=== PATIENT | female | born 1975 | race Caucasian/White ===

== ENCOUNTER 2016-09-12 04:34 | Emergency (ER) | END 2016-09-12 08:43 | disposition home or self-care (01) | DX: J06.9 Acute upper respiratory infection, unspecified (principal); F17.210 Nicotine dependence, cigarettes, uncomplicated | CPT/HCPCS: 36415; 80053; 81001; 81003; 83690; 85025; Z7502; Z7610 ==

== ENCOUNTER 2016-09-30 12:43 | Emergency (ER) | payer MEDICAID ==
[~2016-09-30] VITALS: Ht 154.9 cm; Wt 53.0 kg
[~2016-09-30 12:43] MED LIST: ACET1TAB40 PO; AZIT250T94 PO; BENZ100C70 PO; CEPH-443 PO; CLOT24CR4 TOP; CODE118S PO; ELIM TOP; ERYTOPOI RIGHT EYE; FLUT9.9S NASAL; HYDR-3011 PO; IBUP-1542 PO; KENC1 TOP; LORA-441 PO; NITR-58 PO; ONDA4TAB8 PO; OSLT75C PO; PROM5SYR2 PO; PROM6.25 PO; PROM6.2514 PO; PSEU30TA38 PO
[2016-09-30 12:46] VITALS: Ht 154.9 cm; Wt 53.0 kg
--- NOTE | 2016-09-30 14:22 | ERD ---
ER Documentation Chief Complaint Date/Time DATE: 09/30/16 TIME: 14:15 Chief Complaint RT EYE PAIN AND REDNESS HPI 40 y/o female presents to ED for right eye pain and redness for 8 days. Stated that it started while she was working with her recycling bottles and a glass broke and she felt like she had a piece of glass that got into her eyes. Pain was described as achy and non-radiating with the rate of 7/10 at this time. Reports blurry vision on right eye but able to read letters on a paper. She does not report pain on eye movement. Denies headache, loss of consciousness, dizziness, blurry vision, changes in vision, facial pain, ear pain, throat pain, difficulty swallowing, neck pain, neck stiffness, shoulder pain, chest pain, cough, hemoptysis, abdominal pain, back pain, loss of appetite, nausea, vomiting, hematochezia, diarrhea, constipation, urinary symptoms, , the possibility of being , bladder and bowel incontinences, extremity weakness, extremity tenderness, numbness or tingling sensation, difficulty walking, recent travel, recent exposure to illness, recent antibiotic use in the last 3 months, fever, chills. Allergy: NKA PMH: Denies Family medical history: Denies AO LMP: "15 days ago." Medications: Denies Surgery: Pancreatic surgery Social: Works Denies smoking, use of alcohol, use of illegal drugs. ROS All systems reviewed and are negative except as per history of present illness. Medications Home Meds Active Scripts Fluticasone Propionate (Flonase Allergy Relief) 9.9 Ml Stevenson.susp, 1 SPRAY NASAL DAILY, #1 BOTTLE TO EACH NOSTRIL Prov:BINH CHEEMA PA-C 09/12/16 Pseudoephedrine Hcl* (Pseudoephedrine Hcl*) 30 Mg Tablet, 30 MG PO Q6 Y for CONGESTION, #30 TAB Prov:BINH CHEEMA PA-C 09/12/16 Ondansetron Hcl* (Zofran*) 4 Mg Tablet, 4 MG PO Q6H for NAUSEA AND/OR VOMITING, #30 TAB Prov:BINH CHEEMA PA-C 09/12/16 Promethazine HCl/Codeine (Prometh-Codein 6.25-10 mg/5 ml) 5 Ml Syrup, 5 ML PO QID for 5 Days Prov:SAM RUBIO MD 07/08/16 Ibuprofen* (Motrin*) 600 Mg Tab, 600 MG PO Q6, #20 TAB Prov:SAM RUBIO MD 07/08/16 Azithromycin* (Zithromax*) 250 Mg Tablet, 250 MG PO .ZPACK DIRECTED, #6 TAB TAKE 500 MG (2 TABS) THE FIRST DAY THEN 250 MG (1 TAB) DAYS 2-5 Prov:SAM RUBIO MD 07/08/16 Oseltamivir Phosphate* (Tamiflu*) 75 Mg Capsule, 75 MG PO BID for 5 Days, CAP Prov:ANGIE PERKINS NP 07/08/16 Ibuprofen* (Motrin*) 600 Mg Tab, 600 MG PO Q6, #30 TAB Prov:ASPEN LARKIN PA-C 07/05/16 Promethazine Hcl* (Promethazine Hcl* Syrup) 6.25 Mg/5 Ml Syrup, 6.25 MG PO Q6H Y for COUGH, #4 ML Prov:ASPEN LARKIN PA-C 07/05/16 Erythromycin* (Erythromycin* Ophthalmic) 1 Applic Oint, 1 APPLIC RIGHT EYE QID for 7 Days Prov:JUANIS KINCAID PA-C 05/01/16 Cephalexin* (Keflex*) 500 Mg Capsule, 500 MG PO QID for 7 Days, CAP Prov:JUANIS KINCAID PA-C 05/01/16 Hydroxyzine Hcl* (Hydroxyzine Hcl*) 25 Mg Tablet, 25 MG PO Q8H Y for ITCHING, # 30 TAB Prov:MARISOL CAMPO NP 08/24/15 Triamcinolone Acetonide (Triamcinolone Acetonide) 0.1% - 15 Gm Cream.gm., 1 APPLIC TOP BID for 7 Days, TUB Prov:MARISOL CAMPO NP 08/24/15 Permethrin* (Elimite*) 5% Cr, 1 APPLIC TOP ONCE, #1 TUB APPLY FROM NECK DOWN, LEAVE ON FOR 12 HRS THEN RINSE OFF, REPEAT IN 1 WEEK Prov:MARISOL CAMPO NP 08/24/15 Clotrimazole* (Lotrimin* AF) 1% - 24 Gm Cream.gm., 1 APPLIC TOP BID for 10 Days , TUB Prov:SAM RUBIO MD 07/19/15 Ibuprofen* (Motrin*) 600 Mg Tab, 600 MG PO Q6, #14 TAB Prov:SAM RUBIO MD 07/19/15 Lorazepam* (Ativan*) 0.5 Mg Tablet, 0.5 MG PO Q8, #14 TAB Prov:SAM RUBIO MD 07/19/15 Nitrofurantoin Monohyd Macrocr* (Macrobid*) 100 Mg Capsr, 100 MG PO BID for 7 Days, CAP Prov:FATOU FERNANDES PA-C 03/10/15 Promethazine w/Codeine* (Phenergan w/Codeine* Syrup) 5 Ml Syrup, 5 ML PO Q4H Y for COUGH, #4 OZ Prov:CHO,LAZARUS 03/05/15 Benzonatate* (Tessalon Perle*) 100 Mg Capsule, 200 MG PO TID Y for COUGH, #21 CAP Prov:CHO,LAZARUS 03/05/15 Acetaminophen-Codeine* (Acetaminophen-Cod #3*) 300-30 Mg Tab, 1 TAB PO Q4H Y for PAIN LEVEL 6-10, #15 TAB Prov:CHO,LAZARUS 03/05/15 Ibuprofen* (Motrin*) 600 Mg Tab, 600 MG PO Q6 for PAIN LEVEL 1-5, #15 TAB Prov:CHO,LAZARUS 03/05/15 Reported Medications Promethazine w/Codeine* (Phenergan w/Codeine* Syrup) 473 Ml Syrup, 473 ML PO Q6 Y 06/20/13 Allergies Allergies: Coded Allergies: No Known Drug Allergies (Verified Allergy, Mild, 07/05/16) PMhx/Soc History of Surgery: Yes (c/section) Anesthesia Reaction: No Hx Neurological Disorder: No Hx Respiratory Disorders: No Hx Cardiac Disorders: No Hx Psychiatric Problems: No Hx Miscellaneous Medical Probl: No Hx Alcohol Use: No Hx Substance Use: No Hx Tobacco Use: Yes (2-3 cig/ day) Physical Exam Vitals Vital Signs Date Time Temp Pulse Resp B/P Pulse Ox O2 Delivery O2 Flow Rate FiO2 09/30/16 12:46 97.8 88 18 132/66 100 Results 24 hrs Current Medications Medications (Trade) Dose Ordered Sig/Carole Route PRN Reason Start Time Stop Time Status Last Admin Dose Admin Fluorescein Sodium (Uvwpt-N-Ehkly) 1 strip ONCE ONCE RIGHT EYE 09/30/16 14:30 09/30/16 14:31 DC Proparacaine HCl (Alcaine 0.5%) 1 drop ONCE ONCE RIGHT EYE 09/30/16 14:30 09/30/16 14:30 DC Tetracaine HCl (Tetracaine 0.5% Oph) 1 drop ONCE ONCE RIGHT EYE 09/30/16 14:30 09/30/16 14:31 DC Procedures/MDM Initially seen here in ED RME but during history taking I realized that patient needs to be seen at ED2 providers due to the patient HPI of possible foreign body secondary to eye injury. Departure Condition: Stable CONNOR HURTADO Sep 30, 2016 14:22 Medications (Trade) Dose Ordered Sig/Carole Route PRN Reason Start Time Stop Time Status Last Admin Dose Admin Fluorescein Sodium (Mjifw-W-Bebnw) 1 strip ONCE ONCE RIGHT EYE 09/30/16 14:30 09/30/16 14:31 Proparacaine HCl (Alcaine 0.5%) 1 drop ONCE ONCE RIGHT EYE 09/30/16 14:30 09/30/16 14:31 Procedures/MDM Examination: Unremarkable examination except Patient and family member agreed with the plan of care and medical management. Medications: Patient and family member are made aware of the side effects of and adverse reactions of the medications prescribed. Instructed on when to seek emergent and medical attention in case allergic/anaphylactic reactions or severe side effects and or adverse reactions to medications. Patient and family member verbalized understanding. EENT instructions: Rest. Increase fluid intake. Avoid allergens. Take medications as prescribed. Educated on the disease process, treatment and emergency actions. Respiratory instructions: Increase fluid intake. Good hydration at home. Use humidifier. Rest. Avoid smoking/allergens. Educated on disease process, treatment and emergency actions. Patient instructed Instructed to follow-up with his PCP in 24 hours. PCP to refer patient EENT, Manager House, Acquisition Lead, Protection Engineer, Feed Preparation Operator, Orthopedic doctor in 24-48 hours. Instructed to Call 911 for chest pain, shortness of breath. Advised to come back here in ED as soon as possible for severity of symptoms which includes but not limited to: any new symptoms; shortness of breath/difficulty of breathing; cardiovascular changes; severe gastrointestinal symptoms; signs and symptoms of bleeding and or infection; signs of compartment syndrome/neurovascular changes; neurological changes/deficits. Patient and family member verbalized understanding. Upon discharge, patient is alert and oriented x 4, patient speaks full and clear sentences, patient denies pain, patient has no neurological deficits, patient has no neurovascular deficits. No difficulty of breathing. Lung sounds are clear to auscultation. Not in distress. Appears comfortable. Not in distress. Appears satisfied with care provided here in ED. CONNOR HURTADO Sep 30, 2016 14:22
[2016-09-30] MEDS ORDERED: PROPARACAINE 0.5% 15 ML OPH RIGHT EYE ONE (14:30)
[2016-09-30] MEDS ORDERED: TETRACAINE 0.5% 15 ML OPH RIGHT EYE ONE (14:30)
[2016-09-30] MEDS ORDERED: FLUORESCEIN STRIP RIGHT EYE ONE (14:30)
[2016-09-30] MEDS ORDERED: NAPR-688 PO (15:20)
[2016-09-30] MEDS ORDERED: HYDR-906 PO (15:20)
[2016-09-30] MEDS ORDERED: POLY10DR19 RIGHT EYE (15:20)
--- NOTE | 2016-09-30 15:30 | EN ---
Date/Time of Note Date/Time of Note DATE: 09/30/16 TIME: 15:27 ER Progress Note This 40-year-old female has right eye redness and pain. Was a days ago she was working with a glass bottle that broke. Workup done in ED 2 stated there may be a foreign body present. I performed an examination under high-powered lamp magnification and could find no foreign body. There was mild fluorescein uptake in part of the lateral pterygium as the patient does have pterygiums on both sides of her iris and cornea of the right eye. There is no foreign body could be removed. Eyelid eversion showed no foreign bodies either. At this point patient may have had a foreign body that dislodged and still has discomfort. She may simply have a corneal abrasion at this point. With an supervisor liquefaction to be the ideal physician to examine this patient further. I have explained this to the patient instructed in how to obtain ophthalmologic referral. She does have primary care physician but does not know the name. She is going to call and get ophthalmologic referral for the next few days. I am also to discharge with Polytrim eyedrops as well as naproxen and a few [place] for the pain. Discharge diagnosis: Corneal abrasion, pterygium: Both symptoms of right eye. MELLISA NAVARRO DO Sep 30, 2016 15:30
== END 2016-09-30 15:33 | disposition home or self-care (01) ==
LOC: FTE 12:43
DX: S05.01XA Injury of conjunctiva and corneal abrasion without foreign body, right eye, initial encounter (principal); H11.001 Unspecified pterygium of right eye; F17.210 Nicotine dependence, cigarettes, uncomplicated; X58.XXXA Exposure to other specified factors, initial encounter; Y92.9 Unspecified place or not applicable
CPT/HCPCS: Z7610 ×2; 99284

== ENCOUNTER 2016-12-27 20:49 | Emergency (ER) | payer MEDICAID ==
[~2016-12-27] VITALS: Wt 53.5 kg
[~2016-12-27 20:49] MED LIST changes: +HYDR-906 PO; +NAPR-688 PO; +POLY10DR19 RIGHT EYE
[2016-12-27] MEDS ORDERED: MINE3.5O30 BOTH EYES (21:39)
--- NOTE | 2016-12-27 21:47 | ERD ---
ER Documentation Chief Complaint Date/Time DATE: 12/27/16 TIME: 21:44 Chief Complaint eye pain x September This is a 41-year-old female presenting to the emergency department complaining of eye irritation and mild redness in both eyes for approximately 4 months. Patient has been evaluated by this facility for the same complaint in September. Patient describes the pain as mild irritation, constant, rating it 4 out of 10. She denies any vision changes, fevers, eye discharge, floaters or pain. Patient was evaluated in September with fluorescein staining and was given eyedrops, patient states that there was no relief. She has not followed up with her primary care physician. ROS All systems reviewed and are negative except as per history of present illness. Medications Home Meds Active Scripts Mineral Oil/Petrolatum,White (ARTIFICIAL TEARS EYE OINT) 3.5 Gm Oint...g., 1 APPLIC BOTH EYES NEEDED Y for DRY EYES, #1 EA Prov:SANTIAGO GARZON PA-C 12/27/16 Naproxen* (Naproxen*) 500 Mg Tablet, 500 MG PO BID Y for PAIN, #20 TAB Prov:MELLISA NAVARRO DO 09/30/16 Hydrocodone/Acetaminophen ([place] 5-325 Tablet) 1 Each Tablet, 1 EACH PO Q6, #14 TAB Prov:MELLISA NAVARRO DO 09/30/16 Polymyxin B Sulfate-TMP* (Polymyxin B-TMP Eye Drops*) 10 Ml Drops, 1 DROP RIGHT EYE QID for 7 Days, EA Prov:MELLISA NAVARRO DO 09/30/16 Fluticasone Propionate (Flonase Allergy Relief) 9.9 Ml [place].susp, 1 SPRAY NASAL DAILY, #1 BOTTLE TO EACH NOSTRIL Prov:BINH CHEEMA PA-C 09/12/16 Pseudoephedrine Hcl* (Pseudoephedrine Hcl*) 30 Mg Tablet, 30 MG PO Q6 Y for CONGESTION, #30 TAB Prov:BINH CHEEMA PA-C 09/12/16 Ondansetron Hcl* (Zofran*) 4 Mg Tablet, 4 MG PO Q6H for NAUSEA AND/OR VOMITING, #30 TAB Prov:BINH CHEEMA PA-C 09/12/16 Promethazine HCl/Codeine (Prometh-Codein 6.25-10 mg/5 ml) 5 Ml Syrup, 5 ML PO QID for 5 Days Prov:SAM RUBIO MD 07/08/16 Ibuprofen* (Motrin*) 600 Mg Tab, 600 MG PO Q6, #20 TAB Prov:SAM RUBIO MD 07/08/16 Azithromycin* (Zithromax*) 250 Mg Tablet, 250 MG PO .LupePACK DIRECTED, #6 TAB TAKE 500 MG (2 TABS) THE FIRST DAY THEN 250 MG (1 TAB) DAYS 2-5 Prov:SAM RUBIO MD 07/08/16 Oseltamivir Phosphate* (Tamiflu*) 75 Mg Capsule, 75 MG PO BID for 5 Days, CAP Prov:ANGIE PERKINS NP 07/08/16 Ibuprofen* (Motrin*) 600 Mg Tab, 600 MG PO Q6, #30 TAB Prov:ASPEN LARKIN PA-C 07/05/16 Promethazine Hcl* (Promethazine Hcl* Syrup) 6.25 Mg/5 Ml Syrup, 6.25 MG PO Q6H Y for COUGH, #4 ML Prov:ASPEN LARKIN PA-C 07/05/16 Erythromycin* (Erythromycin* Ophthalmic) 1 Applic Oint, 1 APPLIC RIGHT EYE QID for 7 Days Prov:JUANIS KINCAID PA-C 05/01/16 Cephalexin* (Keflex*) 500 Mg Capsule, 500 MG PO QID for 7 Days, CAP Prov:JUANIS KINCAID PA-C 05/01/16 Hydroxyzine Hcl* (Hydroxyzine Hcl*) 25 Mg Tablet, 25 MG PO Q8H Y for ITCHING, # 30 TAB Prov:MARISOL CAMPO NP 08/24/15 Triamcinolone Acetonide (Triamcinolone Acetonide) 0.1% - 15 Gm Cream.gm., 1 APPLIC TOP BID for 7 Days, TUB Prov:MARISOL CAMPO NP 08/24/15 Permethrin* (Elimite*) 5% Cr, 1 APPLIC TOP ONCE, #1 TUB APPLY FROM NECK DOWN, LEAVE ON FOR 12 HRS THEN RINSE OFF, REPEAT IN 1 WEEK Prov:MARISOL CAMPO NP 08/24/15 Clotrimazole* (Lotrimin* AF) 1% - 24 Gm Cream.gm., 1 APPLIC TOP BID for 10 Days , TUB Prov:SAM RUBIO MD 07/19/15 Ibuprofen* (Motrin*) 600 Mg Tab, 600 MG PO Q6, #14 TAB Prov:SAM RUBIO MD 07/19/15 Lorazepam* (Ativan*) 0.5 Mg Tablet, 0.5 MG PO Q8, #14 TAB Prov:SAM RUBIO MD 07/19/15 Nitrofurantoin Monohyd Macrocr* (Macrobid*) 100 Mg Capsr, 100 MG PO BID for 7 Days, CAP Prov:FATOU FERNANDES PA-C 03/10/15 Promethazine w/Codeine* (Phenergan w/Codeine* Syrup) 5 Ml Syrup, 5 ML PO Q4H Y for COUGH, #4 OZ Prov:CHO,LAZARUS 03/05/15 Benzonatate* (Tessalon Perle*) 100 Mg Capsule, 200 MG PO TID Y for COUGH, #21 CAP Prov:CHO,LAZARUS 03/05/15 Acetaminophen-Codeine* (Acetaminophen-Cod #3*) 300-30 Mg Tab, 1 TAB PO Q4H Y for PAIN LEVEL 6-10, #15 TAB Prov:CHO,LAZARUS 03/05/15 Ibuprofen* (Motrin*) 600 Mg Tab, 600 MG PO Q6 for PAIN LEVEL 1-5, #15 TAB Prov:CHO,LAZARUS 03/05/15 Reported Medications Promethazine w/Codeine* (Phenergan w/Codeine* Syrup) 473 Ml Syrup, 473 ML PO Q6 Y 06/20/13 Allergies Allergies: Coded Allergies: No Known Drug Allergies (Verified Allergy, Mild, 07/05/16) PMhx/Soc History of Surgery: Yes (c/section) Anesthesia Reaction: No Hx Neurological Disorder: No Hx Respiratory Disorders: No Hx Cardiac Disorders: No Hx Psychiatric Problems: No Hx Miscellaneous Medical Probl: No Hx Alcohol Use: No Hx Substance Use: No Hx Tobacco Use: Yes (2-3 cig/ day) Physical Exam Vitals Vital Signs Date Time Temp Pulse Resp B/P Pulse Ox O2 Delivery O2 Flow Rate FiO2 12/27/16 21:23 98.5 84 20 117/62 100 Physical Exam General: WD/WN, in no apparent distress, non-toxic appearing HENT: NC/AT EYES: Pterygium medial and lateral of both eyes Extraocular muscles intact, pupils equal and reactive to light with consensual response No ptosis, proptosis NECK: Supple; no LAD PULM: Normal labored breathing CV: RRR Good capillary refill GI: Non-distended, no guarding BACK: No masses EXT: No clubbing, cyanosis, or edema NEURO: Moves on all fours SKIN: intact PSYCH: Normal mood Procedures/MDM This this is a 41-year-old female presenting to the emergency department complaining of mild irritation and erythema of both eyes for approximately 4 months, likely due to pterygium of both eyes which was seen on examination. Patient does not have any visual disturbances. Patient has been to this facility in September and had an eye exam with fluorescein staining as well. It is unlikely that patient has conjunctivitis, corneal ulcer, glaucoma anterior uveitis or blepharitis or other pathologic emergencies due to physical examination and since her symptoms are chronic in nature. I have discussed the patient that she will need to follow-up with an hotbed lever operator for further evaluation and management. I have given her instructions to follow-up at the [facility]. I discussed with her to return to the emergency room for any worsening signs or symptoms. She understands and agrees with this plan. She stable for discharge for home. Prescriptions for artificial teardrops have been provided. Departure Diagnosis: Primary Impression: Pterygium of both eyes Condition: Stable Patient Instructions: Pterygium Referrals: [facility] Hours: Mon - Fri 9:00 AM - 5:[address] [facility] () Usted se mary hecho un examen mdico de control que le indica que no est en west condicin que requiera tratamiento urgente en el Departamento de Emergencia. Un estudio ms profundo y el tratamiento de solorio condicin pueden esperar sin ningn riesgo hasta que usted sea atendida/o en el consultorio de solorio mdico o west cl justice. Es responsabilidad suya arreglar west remedios para el seguimiento del jossie. MANEJO DE CONDICIONES NO URGENTES EN EL FUTURO 1) Si usted tiene un mdico de atencin primaria: Usted debera llamar a solorio mdico de atencin primaria antes de venir al departamento de emergencia. Despus de las horas de consultorio, solorio doctor o solorio asociado/a est disponible por telfono. El mdico o enfermero de kassandra en el servicio telefnico puede asesorarle por mckenna medio para atender el problema, o jossie contrario se puede programar west remedios. 2) Si usted no tiene un mdico de atencin primaria: Llame al mdico o condado institucions de referencia que aparece abajo kory las horas de consultorio para hacer west remedios para que le vean. SI USTED NO PUEDE PAGAR PARA RACHEAL UN MEDICO puede ir a: [facility] [address] [place] [address] [facility] [address] [place] [address] [facility] [address] [place] [address] [facility] [place] [address] [place], [place] [id number] Additional Instructions: Visite a solorio mdico maana para un EXAMEN.Regrese a estas instalaciones si no se mejora jack esperbamos o jack le dijimos. [place] toda la medicina michelle y jack se le indic. Regrese a estas instalaciones si no se mejora jack esperbamos o jack le dijimos. SANTIAGO GARZON PA-C December 27, 2016 21:47
== END 2016-12-27 21:40 | disposition home or self-care (01) ==
LOC: E/R 20:49
DX: H11.003 Unspecified pterygium of eye, bilateral (principal); F17.210 Nicotine dependence, cigarettes, uncomplicated
CPT/HCPCS: 99283

== ENCOUNTER 2017-04-02 13:32 | Emergency (ER) | payer MEDICAID, OTHER ==
[~2017-04-02] VITALS: Ht 157.5 cm; Wt 60.0 kg
[~2017-04-02 13:32] MED LIST changes: -KENC1 TOP; +MINE3.5O30 BOTH EYES; -PROM6.2514 PO; +TRIA15CR55 TOP
[2017-04-02 13:34] VITALS: Ht 157.5 cm; Wt 60.0 kg
[2017-04-02] MEDS ORDERED: HYDROCODONE/APAP (5/325) TAB PO ONE (14:30)
[2017-04-02] MEDS ORDERED: NEOMYC/POLYMYX/BACIT 30 GM OINT TOP ONE (14:30)
[2017-04-02] MEDS ORDERED: DIPHTH/TET/ACEL PERTUSS (ADULT) 0.5 ML VIAL IM* ONE (14:30)
[2017-04-02] MEDS ORDERED: KETOROLAC 60 MG INJ IM STA (15:26)
[2017-04-02] MEDS ORDERED: IBUPROFEN 600 MG TAB PO ONE (15:30)
[2017-04-02] MEDS ORDERED: LIDOCAINE 2% VISC 15 ML CUP TOP ONE (15:30)
--- NOTE | 2017-04-02 16:12 | RADRPT ---
PROCEDURE: CT Orbits without contrast. CLINICAL INDICATION: Right orbital trauma. Evaluate for glass chips. TECHNIQUE: A CT of the orbits was performed on a multi-slice CT scanner utilizing thin section axi al images without the use of intravenous contrast. Sagittal and coronal reformatted images were mad e. The images were reviewed on a PACS workstation. The CTDIvol is 29.08 mGy and the DLP is 324.41 mG ycm. One or more of the following dose reduction techniques were used: Automated exposure control. Adjustment of the mA and/or kV according to patient size. Use of iterative reconstruction technique. COMPARISON: None. FINDINGS: The osseous structures are intact with no fracture or osseous abnormality identified. The extraocul ar muscles and optic nerves are bilaterally symmetric and normal in appearance. The globes are unre markable. The lacrimal glands appear normal. No abnormal attenuation of the intra or extraconal fa t is identified. The sella turcica is unremarkable. IMPRESSION: 1. No orbital radiopaque foreign bodies. 2. No orbital fracture. RPTAT: BB .Ok Butt MD, Date Time Electronically viewed and signed by .Ok Butt MD, MD on 04/02/2017 16:11 .O/
[2017-04-02] MEDS ORDERED: HYDR-906 PO (16:21)
[2017-04-02] MEDS ORDERED: MINE3.5O30 RIGHT EYE (16:21)
[2017-04-02] MEDS ORDERED: NEOM28OI TP (16:21)
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
== END 2017-04-02 17:08 | disposition home or self-care (01) ==
LOC: FTE 13:32
DX: H11.001 Unspecified pterygium of right eye (principal); T24.131A Burn of first degree of right lower leg, initial encounter; T24.132A Burn of first degree of left lower leg, initial encounter; F17.210 Nicotine dependence, cigarettes, uncomplicated; X10.2XXA Contact with fats and cooking oils, initial encounter; Y92.9 Unspecified place or not applicable; Z23 Encounter for immunization
CPT/HCPCS: 70480; 90471; 90715; 96372; J1885; Z7502; Z7610

== ENCOUNTER 2017-07-23 03:21 | Emergency (ER) | payer OTHER ==
[~2017-07-23] VITALS: Ht 157.5 cm; Wt 53.4 kg
[~2017-07-23 03:21] MED LIST changes: +MINE3.5O30 RIGHT EYE; +NEOM28OI TP
[2017-07-23 03:26] VITALS: Ht 157.5 cm; Wt 53.4 kg
--- NOTE | 2017-07-23 04:59 | ERD ---
ER Documentation Chief Complaint Chief Complaint R EYE PAIN/REDNESS STARTED 2 DAYS AGO, DENIES DC HPI 41-year-old female presents here to emergency department for complaints of sudden onset of right eye redness started 2 days ago. Patient denies any pain. Patient denies any vision changes. Patient cannot remember if she was coughing, or doing anything that may have happened prior to having the symptoms. Patient denies any eye discharge. Patient denies any eye sensitivity , light sensitivity. ROS All systems reviewed and are negative except as per history of present illness. Medications Home Meds Active Scripts Mineral Oil/Petrolatum,White (ARTIFICIAL TEARS EYE OINT) 3.5 Gm Oint...g., 1 APPLIC RIGHT EYE NEEDED Y for DRY EYES, #1 EA Prov:SAM RUBIO MD 04/02/17 Neomycin Lopez/Bacitrac Zn/Poly (Triple Antibiotic Ointment) 28 Gm Oint...g., 28 GM TP TID for 7 Days Prov:SAM RUBIO MD 04/02/17 Hydrocodone/Acetaminophen ([place] 5-325 Tablet) 1 Each Tablet, 1 TAB PO Q6H Y for PAIN, #10 TAB Prov:SAM RUBIO MD 04/02/17 Mineral Oil/Petrolatum,White (ARTIFICIAL TEARS EYE OINT) 3.5 Gm Oint...g., 1 APPLIC BOTH EYES NEEDED Y for DRY EYES, #1 EA Prov:SANTIAGO GARZON PA-C 12/27/16 Naproxen* (Naproxen*) 500 Mg Tablet, 500 MG PO BID Y for PAIN, #20 TAB Prov:MELLISA NAVARRO DO 09/30/16 Hydrocodone/Acetaminophen ([place] 5-325 Tablet) 1 Each Tablet, 1 EACH PO Q6, #14 TAB Prov:MELLISA NAVARRO DO 09/30/16 Polymyxin B Sulfate-TMP* (Polymyxin B-TMP Eye Drops*) 10 Ml Drops, 1 DROP RIGHT EYE QID for 7 Days, EA Prov:MELLISA NAVARRO DO 09/30/16 Fluticasone Propionate (Flonase Allergy Relief) 9.9 Ml [place].susp, 1 SPRAY NASAL DAILY, #1 BOTTLE TO EACH NOSTRIL Prov:BINH CHEEMA PA-C 09/12/16 Pseudoephedrine Hcl* (Pseudoephedrine Hcl*) 30 Mg Tablet, 30 MG PO Q6 Y for CONGESTION, #30 TAB Prov:BINH CHEEMA PA-C 09/12/16 Ondansetron Hcl* (Zofran*) 4 Mg Tablet, 4 MG PO Q6H for NAUSEA AND/OR VOMITING, #30 TAB Prov:BINH CHEEMA PA-C 09/12/16 Promethazine HCl/Codeine (Prometh-Codein 6.25-10 mg/5 ml) 5 Ml Syrup, 5 ML PO QID for 5 Days Prov:SAM RUBIO MD 07/08/16 Ibuprofen* (Motrin*) 600 Mg Tab, 600 MG PO Q6, #20 TAB Prov:SAM RUBIO MD 07/08/16 Azithromycin* (Zithromax*) 250 Mg Tablet, 250 MG PO .SVETA DIRECTED, #6 TAB TAKE 500 MG (2 TABS) THE FIRST DAY THEN 250 MG (1 TAB) DAYS 2-5 Prov:SAM RUBIO MD 07/08/16 Oseltamivir Phosphate* (Tamiflu*) 75 Mg Capsule, 75 MG PO BID for 5 Days, CAP Prov:ANGIE PERKINS NP 07/08/16 Ibuprofen* (Motrin*) 600 Mg Tab, 600 MG PO Q6, #30 TAB Prov:ASPEN LARKIN PA-C 07/05/16 Promethazine Hcl* (Promethazine Hcl* Syrup) 6.25 Mg/5 Ml Syrup, 6.25 MG PO Q6H Y for COUGH, #4 ML Prov:ASPEN LARKIN PA-C 07/05/16 Erythromycin* (Erythromycin* Ophthalmic) 1 Applic Oint, 1 APPLIC RIGHT EYE QID for 7 Days Prov:JUANIS KINCAID PA-C 05/01/16 Cephalexin* (Keflex*) 500 Mg Capsule, 500 MG PO QID for 7 Days, CAP Prov:JUANIS KINCAID PA-C 05/01/16 Hydroxyzine Hcl* (Hydroxyzine Hcl*) 25 Mg Tablet, 25 MG PO Q8H Y for ITCHING, # 30 TAB Prov:MARISLO CAMPO NP 08/24/15 Triamcinolone Acetonide (Triamcinolone Acetonide) 0.1% - 15 Gm Cream.gm., 1 APPLIC TOP BID for 7 Days, TUB Prov:MARISOL CAMPO NP 08/24/15 Permethrin* (Elimite*) 5% Cr, 1 APPLIC TOP ONCE, #1 TUB APPLY FROM NECK DOWN, LEAVE ON FOR 12 HRS THEN RINSE OFF, REPEAT IN 1 WEEK Prov:MARISOL CAMPO NP 08/24/15 Clotrimazole* (Lotrimin* AF) 1% - 24 Gm Cream.gm., 1 APPLIC TOP BID for 10 Days , TUB Prov:SAM RUBIO MD 07/19/15 Ibuprofen* (Motrin*) 600 Mg Tab, 600 MG PO Q6, #14 TAB Prov:SAM RUBIO MD 07/19/15 Lorazepam* (Ativan*) 0.5 Mg Tablet, 0.5 MG PO Q8, #14 TAB Prov:SAM RUBIO MD 07/19/15 Nitrofurantoin Monohyd Macrocr* (Macrobid*) 100 Mg Capsr, 100 MG PO BID for 7 Days, CAP Prov:FATOU FERNANDES PA-C 03/10/15 Promethazine w/Codeine* (Phenergan w/Codeine* Syrup) 5 Ml Syrup, 5 ML PO Q4H Y for COUGH, #4 OZ Prov:CHO,LAZARUS 03/05/15 Benzonatate* (Tessalon Perle*) 100 Mg Capsule, 200 MG PO TID Y for COUGH, #21 CAP Prov:CHO,LAZARUS 03/05/15 Acetaminophen-Codeine* (Acetaminophen-Cod #3*) 300-30 Mg Tab, 1 TAB PO Q4H Y for PAIN LEVEL 6-10, #15 TAB Prov:CHO,LAZARUS 03/05/15 Ibuprofen* (Motrin*) 600 Mg Tab, 600 MG PO Q6 for PAIN LEVEL 1-5, #15 TAB Prov:CHO,LAZARUS 03/05/15 Reported Medications Promethazine w/Codeine* (Phenergan w/Codeine* Syrup) 473 Ml Syrup, 473 ML PO Q6 Y 06/20/13 Allergies Allergies: Coded Allergies: No Known Drug Allergies (Verified Allergy, Mild, 07/05/16) PMhx/Soc History of Surgery: Yes (c/section) Anesthesia Reaction: No Hx Neurological Disorder: No Hx Respiratory Disorders: No Hx Cardiac Disorders: No Hx Psychiatric Problems: No Hx Miscellaneous Medical Probl: No Hx Alcohol Use: No Hx Substance Use: No Hx Tobacco Use: Yes (2-3 cig/ day) FmHx Family History: No coronary disease, No diabetes, No other Physical Exam Vitals Vital Signs Date Time Temp Pulse Resp B/P Pulse Ox O2 Delivery O2 Flow Rate FiO2 07/23/17 03:26 97.4 77 20 130/66 99 Physical Exam GENERAL: The patient is well developed and appropriate for usual state of health, in no apparent distress HEENT: Atraumatic. Bilateral eyes are PERRLA EOM intact. Noted right eye with subconjunctival hemorrhage. Ears: Normal tympanic membrane, no erythema or bulging. No ear canal swelling. No ear discharge. Nose: normal nasal turbinates , no erythema or swelling. Normal nasal discharge. Throat: oropharynx clear. No tonsillar swelling or tonsillar exudates. No lymphadenopathy. CHEST: Clear to auscultation bilaterally. There are no rales, wheezes or rhonchi. HEART: Regular rate and rhythm. No murmurs, clicks, rubs or gallops. No S3 or S4. ABDOMEN: Soft, nontender and nondistended. Good bowel sounds. No rebound or guarding. No gross peritonitis. No gross organomegaly or masses. No Ellis sign or McBurney point tenderness. BACK: No midline or flank tenderness. EXTREMITIES: Equal pulses bilaterally. There is no peripheral clubbing, cyanosis or edema. No focal swelling or erythema. Full range of motion. Grossly neurovascularly intact. NEURO: Alert and oriented. Cranial nerves 2-12 intact. Motor strength in all 4 extremities with 5/5 strength. Sensation grossly intact. Normal speech and gait. SKIN: There is no apparent rash or petechia. The skin is warm and dry. HEMATOLOGIC AND LYMPHATIC: There is no evidence of excessive bruising or lymphedema. No gross cervical, axillary, or inguinal lymphadenopathy. Procedures/MDM Medical decision making: Patient symptoms was likely is consistent with right subconjunctival hemorrhage. No symptoms of any other eye emergencies, no pain, no vision changes, no trauma in affected area. No symptoms of any other acute eye emergencies at this time. Patient was advised to follow with primary doctor in 2-3 days for reevaluation of symptoms. Patient is advised to return to emergency department. Disposition: Home. Stable Departure Diagnosis: Primary Impression: Subconjunctival hemorrhage of right eye Condition: Stable Patient Instructions: Subconjunctival Hemorrhage [facility] Usted se mary hecho un examen mdico de control que le indica que no est en west condicin que requiera tratamiento urgente en el Departamento de Emergencia. Un estudio ms profundo y el tratamiento de lopez condicin pueden esperar sin ningn riesgo hasta que usted sea atendida/o en el consultorio de lopez mdico o west cl justice. Es responsabilidad suya arreglar west remedios para el seguimiento del jossie. MANEJO DE CONDICIONES NO URGENTES EN EL FUTURO 1) Si usted tiene un mdico de atencin primaria: Usted debera llamar a lopez mdico de atencin primaria antes de venir al departamento de emergencia. Despus de las horas de consultorio, lopez doctor o lopez asociado/a est disponible por telfono. El mdico o enfermero de kassandra en el servicio telefnico puede asesorarle por mckenna medio para atender el problema, o jossie contrario se puede programar west remedios. 2) Si usted no tiene un mdico de atencin primaria: Llame al mdico o clnica de referencia que aparece abajo kory las horas de consultorio para hacer west remedios para que le vean. CLINICAS: [facility] 215 [phone] [address] [facility] 058 [phone] [address] [facility] [phone] [facility] 665 [phone] [address] [facility] 857 [phone] [address] [facility] [phone] [address] [facility] () Usted se mary hecho un examen mdico de control que le indica que no est en west condicin que requiera tratamiento urgente en el Departamento de Emergencia. Un estudio ms profundo y el tratamiento de lopez condicin pueden esperar sin ningn riesgo hasta que usted sea atendida/o en el consultorio de lopez mdico o west cl justice. Es responsabilidad suya arreglar west remedios para el seguimiento del jossie. MANEJO DE CONDICIONES NO URGENTES EN EL FUTURO 1) Si usted tiene un mdico de atencin primaria: Usted debera llamar a lopez mdico de atencin primaria antes de venir al departamento de emergencia. Despus de las horas de consultorio, lopez doctor o lopez asociado/a est disponible por telfono. El mdico o enfermero de kassandra en el servicio telefnico puede asesorarle por mckenna medio para atender el problema, o jossie contrario se puede programar west remedios. 2) Si usted no tiene un mdico de atencin primaria: Llame al mdico o condado institucions de referencia que aparece abajo kory las horas de consultorio para hacer west remedios para que le vean. SI USTED NO PUEDE PAGAR PARA RACHEAL UN MEDICO puede ir a: [facility] [address] [place] [address] [facility] [address] [place] [address] [facility] [address] [place] [address] [facility] [address] [place] [address] CUISNOE,MARISOL Terrell NP Jul 23, 2017 04:59
[2017-07-23 05:10] VITALS: BP 118/65; PULSE 76; RESP 16; TEMP 98.4
== END 2017-07-23 05:24 | disposition home or self-care (01) ==
LOC: FTE 03:21
DX: H11.31 Conjunctival hemorrhage, right eye (principal); Z87.891 Personal history of nicotine dependence
CPT/HCPCS: 99282

== ENCOUNTER 2017-10-08 06:58 | Emergency (ER) | END 2017-10-08 08:35 | disposition home or self-care (01) ==

== ENCOUNTER 2017-11-16 07:53 | Emergency (ER) | END 2017-11-16 08:57 | disposition home or self-care (01) ==

== ENCOUNTER 2017-11-23 08:39 | Emergency (ER) | END 2017-11-23 14:35 | disposition home or self-care (01) ==

== ENCOUNTER 2017-11-26 09:12 | Emergency (ER) | END 2017-11-26 11:12 | disposition left against medical advice (07) ==

== ENCOUNTER → 2018-06-18 | Emergency (ER) | END | disposition home or self-care (01) ==

== ENCOUNTER 2019-02-21 04:31 | Emergency (ER) | payer OTHER ==
[~2019-02-21] VITALS: Ht 160 cm; Wt 54.8 kg
[~2019-02-21 04:31] MED LIST changes: +AZIT250T PO; -AZIT250T94 PO; +BENZ-6 PO; -BENZ100C70 PO; +CIPR-193 PO; +D-ME473S2 PO; +DOXY100T20 PO; -HYDR-3011 PO; +HYDR-4011 PO; +HYDR-843 PO; -HYDR-906 PO; +IBUP-1561 PO; +METO10TA92 PO; +METR500T PO; -NEOM28OI TP; +NEOM28OI2 TP; +OSEL75CA23 PO; -OSLT75C PO; +PROM6.2515 PO
[2019-02-21 04:35] VITALS: Ht 160 cm; Wt 54.8 kg
[2019-02-21] MEDS ORDERED: ONDANSETRON 4 MG INJ IV STA ×4 (08:09→12:31)
[2019-02-21] MEDS ORDERED: HYDROmorphONE 1 MG/ML SYG IV STA ×3 (08:09→11:09)
[2019-02-21] MEDS ORDERED: SOD CHLORIDE 0.9% 1,000 ML IV STA ×2 (08:09→11:09)
--- NOTE | 2019-02-21 08:27 | ERD ---
ER Documentation Chief Complaint Chief Complaint epigastric pain x 1 hour HPI This is a 43-year-old female that presents to the emergency department stating of a sudden onset of epigastric pain that began 1 hour prior to arrival. She states the pain is 10 out of 10 in intensity. There is no alleviating or exacerbating factors. She indicates she is never had any similar pain in the past. The pain does not radiate to the back. She is felt nauseous and had one episode of nonbloody nonbilious emesis. She denies any diarrhea. She denies illicit drug use or alcohol use. She denies any weight loss. She has no chest pain or pressure that radiates to the neck arm back or jaw. She has had a previous cholecystectomy. No recent travel and no shortness of breath. ROS All systems reviewed and are negative except as per history of present illness. Medications Home Meds Active Scripts Ibuprofen* (Motrin*) 800 Mg Tab, 800 MG PO Q6H PRN for PAIN AND OR ELEVATED TEMP, #30 TAB Prov:MAIRA FUENTES MD 02/21/19 Metronidazole* (Flagyl*) 500 Mg Tablet, 500 MG PO BID for 10 Days, TAB Prov:MAIRA FUENTES MD 02/21/19 Ciprofloxacin Hcl* (Ciprofloxacin Hcl*) 500 Mg Tablet, 500 MG PO BID for 10 Days, TAB Prov:MAIRA FUENTES MD 02/21/19 Ondansetron (Ondansetron Odt) 4 Mg Tab.rapdis, 4 MG PO Q6H PRN for NAUSEA AND/OR VOMITING, #20 TAB Prov:MAIRA FUENTES MD 02/21/19 Discontinued Reported Medications Promethazine w/Codeine* (Phenergan w/Codeine* Syrup) 473 Ml Syrup, 473 ML PO Q6 PRN 06/20/13 Discontinued Scripts Metoclopramide* (Reglan*) 10 Mg Tablet, 10 MG PO BID PRN for NAUSEA AND/OR VOMITING, #10 TAB Prov:VEDA ISIDRO MD 06/18/18 Ciprofloxacin Hcl* (Ciprofloxacin Hcl*) 250 Mg Tablet, 250 MG PO BID for 5 Days, #10 TAB Prov:VEDA ISIDRO MD 06/18/18 Metronidazole* (Flagyl*) 500 Mg Tablet, 500 MG PO TID for 7 Days, TAB Prov:VEDA ISIDRO MD 06/18/18 Ibuprofen* (Motrin*) 400 Mg Tab, 400 MG PO Q8 for 5 Days, #15 TAB Prov:VEDA ISIDRO MD 11/23/17 Doxycycline Hyclate* (Doxycycline Hyclate*) 100 Mg Tablet.dr, 100 MG PO BID for 7 Days, TAB Prov:VEDA ISIDRO MD 11/23/17 Fluticasone Propionate (Flonase Allergy Relief) 9.9 Ml Rudy.susp, 1 SPRAY NASAL BID, #1 BOTTLE TO EACH NOSTRIL Prov:JIMMY PINO PA-C 11/16/17 Ibuprofen* (Motrin*) 600 Mg Tab, 600 MG PO Q6, #30 TAB Prov:JIMMY PINO PA-C 11/16/17 Dextromethorphan Hb-Promethazine Hcl* (Promethazine DM* Syrup) 473 Ml Syrup, 5 ML PO Q6 PRN for COUGH for 5 Days, ML Prov:JIMMY PINO PA-C 11/16/17 Benzonatate* (Tessalon Perle*) 100 Mg Capsule, 100 MG PO Q8H PRN for COUGH, #20 CAP Prov:DALILA VINES PA-C 10/08/17 Azithromycin* (Zithromax*) 250 Mg Tablet, 250 MG PO .ZPACK DIRECTED, #6 TAB TAKE 500 MG (2 TABS) THE FIRST DAY THEN 250 MG (1 TAB) DAYS 2-5 Prov:DALILA VINES PA-C 10/08/17 Mineral Oil/Petrolatum,White (ARTIFICIAL TEARS EYE OINT) 3.5 Gm Oint...g., 1 APPLIC RIGHT EYE NEEDED PRN for DRY EYES, #1 EA Prov:SAM RUBIO MD 04/02/17 Neomycin Lopez/Bacitrac Zn/Poly (Triple Antibiotic Ointment) 28 Gm Oint...g., 28 GM TP TID for 7 Days Prov:SAM RUBIO MD 04/02/17 Hydrocodone/Acetaminophen ([place] 5-325 Tablet) 1 Each Tablet, 1 TAB PO Q6H PRN for PAIN, #10 TAB Prov:SAM RUBIO MD 04/02/17 Mineral Oil/Petrolatum,White (ARTIFICIAL TEARS EYE OINT) 3.5 Gm Oint...g., 1 APPLIC BOTH EYES NEEDED PRN for DRY EYES, #1 EA Prov:SANTIAGO GARZON PA-C 12/27/16 Naproxen* (Naproxen*) 500 Mg Tablet, 500 MG PO BID PRN for PAIN, #20 TAB Prov:YORDY NAVARROUA 09/30/16 Hydrocodone/Acetaminophen ([place] 5-325 Tablet) 1 Each Tablet, 1 EACH PO Q6, #14 TAB Prov:MELANIEMELLISA 09/30/16 Polymyxin B Sulfate-TMP* (Polymyxin B-TMP Eye Drops*) 10 Ml Drops, 1 DROP RIGHT EYE QID for 7 Days, EA Prov:MELANIEMELLISA 09/30/16 Fluticasone Propionate (Flonase Allergy Relief) 9.9 Ml Rudy.susp, 1 SPRAY NASAL DAILY, #1 BOTTLE TO EACH NOSTRIL Prov:BINH CHEEMA PA-C 09/12/16 Pseudoephedrine Hcl* (Pseudoephedrine Hcl*) 30 Mg Tablet, 30 MG PO Q6 PRN for CONGESTION, #30 TAB Prov:BINH CHEEMA PA-C 09/12/16 Ondansetron Hcl* (Zofran*) 4 Mg Tablet, 4 MG PO Q6H for NAUSEA AND/OR VOMITING, #30 TAB Prov:BINH CHEEMA PA-C 09/12/16 Promethazine HCl/Codeine (Prometh-Codein 6.25-10 mg/5 ml) 5 Ml Syrup, 5 ML PO QID for 5 Days Prov:SAM RUBIO MD 07/08/16 Ibuprofen* (Motrin*) 600 Mg Tab, 600 MG PO Q6, #20 TAB Prov:SAM RUBIO MD 07/08/16 Azithromycin* (Zithromax*) 250 Mg Tablet, 250 MG PO .ZPACK DIRECTED, #6 TAB TAKE 500 MG (2 TABS) THE FIRST DAY THEN 250 MG (1 TAB) DAYS 2-5 Prov:SAM RUBIO MD 07/08/16 Oseltamivir Phosphate* (Tamiflu*) 75 Mg Capsule, 75 MG PO BID for 5 Days, CAP Prov:ANGIE PERKINS NP 07/08/16 Ibuprofen* (Motrin*) 600 Mg Tab, 600 MG PO Q6, #30 TAB Prov:ASPEN LARKIN PA-C 07/05/16 Promethazine Hcl* (Promethazine Hcl* Syrup) 6.25 Mg/5 Ml Syrup, 6.25 MG PO Q6H PRN for COUGH, #4 ML Prov:ASPEN LARKIN PA-C 07/05/16 Erythromycin* (Erythromycin* Ophthalmic) 1 Applic Oint, 1 APPLIC RIGHT EYE QID for 7 Days Prov:JUANIS KINCAID PA-C 05/01/16 Cephalexin* (Keflex*) 500 Mg Capsule, 500 MG PO QID for 7 Days, CAP Prov:JUANIS KINCAID PA-C 05/01/16 Hydroxyzine Hcl* (Hydroxyzine Hcl*) 25 Mg Tablet, 25 MG PO Q8H PRN for ITCHING, #30 TAB Prov:MARISOL CAMPO NP 08/24/15 Triamcinolone Acetonide (Triamcinolone Acetonide) 0.1% - 15 Gm Cream.gm., 1 APPLIC TOP BID for 7 Days, TUB Prov:MARISOL CAMPO NP 08/24/15 Permethrin* (Elimite*) 5% Cr, 1 APPLIC TOP ONCE, #1 TUB APPLY FROM NECK DOWN, LEAVE ON FOR 12 HRS THEN RINSE OFF, REPEAT IN 1 WEEK Prov:MARISOL CAMPO NP 08/24/15 Clotrimazole* (Lotrimin* AF) 1% - 24 Gm Cream.gm., 1 APPLIC TOP BID for 10 Days, TUB Prov:SAM RUBIO MD 07/19/15 Ibuprofen* (Motrin*) 600 Mg Tab, 600 MG PO Q6, #14 TAB Prov:SAM RUBIO MD 07/19/15 Lorazepam* (Ativan*) 0.5 Mg Tablet, 0.5 MG PO Q8, #14 TAB Prov:SAM RUBIO MD 07/19/15 Nitrofurantoin Monohyd Macrocr* (Macrobid*) 100 Mg Capsr, 100 MG PO BID for 7 Days, CAP Prov:FATOU FERNANDES CRIS 03/10/15 Promethazine w/Codeine* (Phenergan w/Codeine* Syrup) 5 Ml Syrup, 5 ML PO Q4H PRN for COUGH, #4 OZ Prov:CHO,LAZARUS 03/05/15 Benzonatate* (Tessalon Perle*) 100 Mg Capsule, 200 MG PO TID PRN for COUGH, #21 CAP Prov:CHO,LAZARUS 03/05/15 Acetaminophen-Codeine* (Acetaminophen-Cod #3*) 300-30 Mg Tab, 1 TAB PO Q4H PRN for PAIN LEVEL 6-10, #15 TAB Prov:CHO,LAZARUS 03/05/15 Ibuprofen* (Motrin*) 600 Mg Tab, 600 MG PO Q6 for PAIN LEVEL 1-5, #15 TAB Prov:CHO,LAZARUS 03/05/15 Allergies Allergies: Coded Allergies: No Known Drug Allergies (Verified Allergy, Mild, 02/21/19) PMhx/Soc History of Surgery: Yes (c/section, cholecystectomy,pancreas,intestinal sx) Anesthesia Reaction: No Hx Neurological Disorder: No Hx Respiratory Disorders: No Hx Cardiac Disorders: No Hx Psychiatric Problems: No Hx Miscellaneous Medical Probl: No Hx Alcohol Use: No Hx Substance Use: No Hx Tobacco Use: Yes (2-3 cig/ day) Physical Exam Vitals Vital Signs Date Temp Pulse Resp B/P (MAP) Pulse Ox O2 O2 Flow FiO2 Time Delivery Rate 02/21/19 16 132/80 99 Nasal 2.0 10:00 (97) Cannula 02/21/19 98.4 89 16 122/78 98 Room Air 08:00 (93) 02/21/19 97.3 85 18 139/80 100 04:35 (99) Physical Exam Constitutional:Well-developed. Well-nourished. Patient tearful and appears to be in a significant amount of discomfort secondary to pain HEENT:Normocephalic. Atraumatic.Pupils were equal round reactive to light. Moist mucous membranes.No tonsillar exudates. Conjunctival injection bilaterally Neck: No nuchal rigidity. No lymphadenopathy. No posterior cervical spine tenderness or step-offs. Respiratory: Not using accessory muscles of respiration.Lungs were clear to auscultation bilaterally. No rhonchi. No rales. No wheezing. Cardiovascular: Regular rate regular rhythm.No murmurs. No rubs were appreciated.S1, S2 normal. Distal pulses are palpable 2+ bilaterally. GI: Abdomen was soft. Epigastric tenderness. Left upper quadrant left lower quadrant tenderness with no distension. No pulsatile abdominal masses or bruits. No rebound. No guarding. Bowel sounds were present and normal. Muscle skeletal: Full range of motion of both the upper and lower extremities bilaterally.Normal muscle tone.No assymetrical calf tenderness or swelling. Skin: No petechia, no purpura. No lesions on the palms or the soles of the feet. No maculopapular rash. NEURO: Patient was alert, awake, orientated x3.No facial droop. Gait observed and normal with no ataxia.Speech had regular rate and rhythm. No focal neurological deficits. Result Diagram: 02/21/19 0915 02/21/19 0915 Results 24 hrs Laboratory Tests Test 02/21/19 09:15 02/21/19 13:12 White Blood Count 9.1 10^3/ul Red Blood Count 4.01 10^6/ul Hemoglobin 12.3 g/dl Hematocrit 36.4 % Mean Corpuscular Volume 90.8 fl Mean Corpuscular Hemoglobin 30.7 pg Mean Corpuscular Hemoglobin Concent 33.8 g/dl Red Cell Distribution Width 11.8 % Platelet Count 238 10^3/UL Mean Platelet Volume 9.9 fl Immature Granulocytes % 0.300 % Neutrophils % 86.7 % Lymphocytes % 6.7 % Monocytes % 5.8 % Eosinophils % 0.3 % Basophils % 0.2 % Nucleated Red Blood Cells % 0.0 /100WBC Immature Granulocytes # 0.030 10^3/ul Neutrophils # 7.9 10^3/ul Lymphocytes # 0.6 10^3/ul Monocytes # 0.5 10^3/ul Eosinophils # 0.0 10^3/ul Basophils # 0.0 10^3/ul Nucleated Red Blood Cells # 0.0 10^3/ul Prothrombin Time 12.7 Sec Prothrombin Time Ratio 1.0 INR International Normalized Ratio 0.94 Activated Partial Thromboplast Time 24.2 Sec Sodium Level 138 mmol/L Potassium Level 3.8 mmol/L Chloride Level 103 mmol/L Carbon Dioxide Level 30 mmol/L Anion Gap 5 Blood Urea Nitrogen 12 mg/dl Creatinine 0.60 mg/dl Est Glomerular Filtrat Rate mL/min > 60 mL/min Glucose Level 117 mg/dl Calcium Level 9.0 mg/dl Total Bilirubin 0.6 mg/dl Direct Bilirubin 0.00 mg/dl Indirect Bilirubin 0.6 mg/dl Aspartate Amino Transf (AST/SGOT) 25 IU/L Alanine Aminotransferase (ALT/SGPT) 31 IU/L Alkaline Phosphatase 84 IU/L Troponin I < 0.012 ng/ml Total Protein 7.1 g/dl Albumin 3.9 g/dl Globulin 3.20 g/dl Albumin/Globulin Ratio 1.21 Amylase Level 78 U/L Lipase 56 U/L Serum HCG, Qualitative NEGATIVE Urine Color YELLOW Urine Clarity CLEAR Urine pH 6.0 Urine Specific [place] > 1.060 Urine Ketones NEGATIVE mg/dL Urine Nitrite NEGATIVE mg/dL Urine Bilirubin NEGATIVE mg/dL Urine Urobilinogen NEGATIVE mg/dL Urine Leukocyte Esterase NEGATIVE Sara/ul Urine Hemoglobin NEGATIVE mg/dL Urine Glucose NEGATIVE mg/dL Urine Total Protein NEGATIVE mg/dl Urine Opiates Screen Positive Urine Barbiturates Negative Urine Amphetamines Screen POSITIVE Urine Benzodiazepines Screen Negative Urine Cocaine Screen Negative Urine Cannabinoids Negative Ethyl Alcohol Level < 10.0 mg/dl Current Medications Medications Dose Sig/Carole Start Time Status Last (Trade) Ordered Route PRN Stop Time Admin Dose Reason Admin Sodium 1,000 ml @ Q1H STAT 02/21/19 DC 02/21/19 Chloride 1,000 mls/hr IV 08:09 09:13 02/21/19 09:08 1 mg ONCE STAT 02/21/19 DC 02/21/19 Hydromorphone IV 08:09 09:12 HCl 02/21/19 12:33 (Dilaudid) Ondansetron 4 mg ONCE STAT 02/21/19 DC 02/21/19 HCl (Zofran IV 08:09 09:12 Inj) 02/21/19 08:10 1 mg ONCE STAT 02/21/19 DC 02/21/19 Hydromorphone IV 09:24 09:27 HCl 02/21/19 09:25 (Dilaudid) Ondansetron 4 mg ONCE STAT 02/21/19 DC 02/21/19 HCl (Zofran IV 09:24 09:28 Inj) 02/21/19 09:25 IV Flush 10 ml STK-MED 02/21/19 DC 02/21/19 (NS 10 ml) ONCE .ROUTE 10:14 10:23 02/21/19 10:15 Sodium 100 ml @ ud STK-MED 02/21/19 DC 02/21/19 Chloride ONCE .ROUTE 10:14 10:23 02/21/19 10:15 Iohexol 150 ml STK-MED 02/21/19 DC 02/21/19 (Omnipaque ONCE .ROUTE 10:14 10:23 300mg/ ml) 02/21/19 10:15 Sodium 1,000 ml @ Q1H STAT 02/21/19 DC 02/21/19 Chloride 1,000 mls/hr IV 11:09 12:35 02/21/19 12:23 1 mg ONCE STAT 02/21/19 DC Hydromorphone IV 11:09 HCl 02/21/19 11:12 (Dilaudid) Ondansetron 4 mg ONCE STAT 02/21/19 DC 02/21/19 HCl (Zofran IV 11:09 12:35 Inj) 02/21/19 11:12 Ondansetron 4 mg ONCE STAT 02/21/19 DC HCl (Zofran IV 12:31 Inj) 02/21/19 12:33 10 mg ONCE ONCE 02/21/19 DC 02/21/19 Metoclopramid IV 13:00 13:33 e HCl 02/21/19 13:01 (Reglan) 200 ml @ ONCE STAT 02/21/19 DC 02/21/19 Ciprofloxacin 200 mls/hr IVPB 12:31 13:13 / Dextrose 02/21/19 13:30 500 mg ONCE ONCE 02/21/19 DC 02/21/19 Metronidazole PO 13:00 13:35 (Flagyl) 02/21/19 13:01 Ketorolac 30 mg ONCE STAT 02/21/19 DC 02/21/19 Tromethamine IV 12:34 13:14 (Toradol) 02/21/19 12:46 Procedures/MDM The patient presented to the emergency department with epigastric pain. My differential diagnosis included but was not limited to abdominal aortic aneurysm, choledocholithiasis, gallstone ileus, renal colic, pyelonephritis, pancreatitis, peptic ulcer disease, atypical myocardical infarction, mesenteric ischemia, GERD, pulmonary infarction. The patient was placed on a classroom monitor, continuous pulse oximetry and IV access was established by nursing staff. Patient poor peripheral IV access in the midline have been placed. An EKG was obtained to rule out myocardial ischemia. There was no elevation of LFTs to suggest ductal obstruction, cholangitis, cholecystiitis or hepatitis. Given that the urinalysis did not show bilirubinuria, my suspicion for common duct obstruction or hepatitis was low. 12 Lead EKG tracing ordered and reviewed by myself showed: Normal sinus rhythm of 85 bpm and no arrhythmia. WI interval normal. QRS duration normal. No ST segment elevation No ST segment depression. No changes consistent with acute ischemia. The patient received multiple doses of analgesic medication which included IV Dilaudid and Zofran. The patient's pain did not improve. Therefore I did feel is necessary to obtain a CT scan the patient's abdomen which was reviewed by the radiologist myself and indicate the followin. THICKENING OF THE WORTHY OF DISTAL SMALL BOWEL AND TERMINAL ILEUM, WITH ADJ ACENT INFLAMMATORY CHANGES, CONCERNING FOR FOCAL INFECTIOUS VERSUS INFLAMMATORY TERMINAL ILEITIS. 2. The appendix is within normal limits. No gross evidence of bowel obstruction. Fluid-filled loops of large bowel suggestive of watery diarrhea. 3. Status post cholecystectomy. Mild intrahepatic dilatation and dilatation of the common bile duct, likely within normal limits post cholecystectomy. 4. Intrauterine device in place. Nursing staff approached me and indicated that the patient had eloped without completion of treatment. She did elope with her midline in place and therefore [employer] was called. Nursing staff has approached me and indicated that the patient had now returned to roughly 40 minutes later. The patient stated that she had gone to the bathroom and had gone outside the hospital she is feeling very warm and flushed. When the patient returned she had an episode of nonbloody nonbilious emesis. The patient now had dilated pupils. I obtained a urine drug screen and the p atient was positive for amphetamines. The patient however denied illicit drug use but I was concerned for crystal meth use. She appeared very agitated at this time. She received IV Toradol Zofran and was given IV fluids. Due to the findings on the patient's CT scan she did receive treatment for suspected infectious colitis. She was given IV ciprofloxacin. I do feel the patient be safely discharged home as there is no signs of sepsis and no peritoneal signs. She will be sent home with antibiotics being ciprofloxacin And Flagyl. The patient was discharged home in fair condition. They were instructed to return to the emergency department at any time if there was any worsening of their condition. The patient stated they would follow up with their PCP in the next 24-48 hours to initiate a suitable medication regimen under the care of their PCP as well as to allow their PCP to monitor any drug reactions. The patient was discharged home with prescriptions after they gave informed consent to the new medication. They were also fully informed by myself on the adverse effects and adverse drug interactions in order to provide adequate safeguards to prevent possible adverse reactions to medications. Departure Diagnosis: Primary Impression: Ileitis Additional Impression: Amphetamine abuse Condition: MAIRA Venegas MD Feb 21, 2019 08:27
[2019-02-21] MEDS ORDERED: IOHEXOL 300MG/ML 150 ML BTL ONE (10:14)
[2019-02-21] MEDS ORDERED: SOD CHLORIDE 0.9% 100 ML ONE (10:14)
[2019-02-21] MEDS ORDERED: CIPROFLOXACIN 400MG/D5W 200 ML IVPB STA (12:31)
[2019-02-21] MEDS ORDERED: KETOROLAC 30 MG INJ IV STA (12:34)
[2019-02-21] MEDS ORDERED: METOCLOPRAMIDE 10 MG INJ IV ONE (13:00)
[2019-02-21] MEDS ORDERED: metroNIDAZOLE 500 MG TAB PO ONE (13:00)
[2019-02-21] MEDS ORDERED: ONDA4TAB14 PO (13:49)
[2019-02-21] MEDS ORDERED: IBUP800T48 PO (13:49)
[2019-02-21] MEDS ORDERED: METR500T PO (13:49)
[2019-02-21] MEDS ORDERED: CIPR500T4 PO (13:49)
[2019-02-21 14:30] VITALS: BP 121/79; PULSE 99; RESP 18
== END 2019-02-21 14:36 | disposition left against medical advice (07) ==
LOC: E/R 04:31
DX: K52.9 Noninfective gastroenteritis and colitis, unspecified (principal); F17.210 Nicotine dependence, cigarettes, uncomplicated; F15.10 Other stimulant abuse, uncomplicated
CPT/HCPCS: 36415; 71045; 74177; 80053; 80307; 81003; 82150; 83690; 84484; 84703; 85025; 85610; 85730; 93005; 96361; 96365; 96375; 96376; J0744; J1170; J1885; J2405; J2765; J7030; Q9967; Z7502; Z7610